=== PATIENT | female | born 1995 ===

== ENCOUNTER 2016-08-24 10:31 | Emergency (ER) | payer OTHER ==
[2016-08-24] MEDS ORDERED: Ondansetron ODT TAB* 4 MG PO ONE (11:58)
--- NOTE | 2016-08-24 12:30 | RAD ---
INDICATION: Chest pain and nausea COMPARISON: None TECHNIQUE: PA and lateral views of the chest were obtained. FINDINGS: The heart and mediastinum are normal in size and contour. The lungs are grossly clear. There is no evidence of large pleural effusion. Visualized bones are normal for the patient's age. There is no radiographic evidence of free air beneath the diaphragm IMPRESSION: No radiographic evidence of acute cardiopulmonary disease.
--- NOTE | 2016-09-01 16:48 | UC ---
Lionel Sousa Rebecca, scribed for Sallie Vega MD on 08/24/16 at 1135 . Abdominal Pain Female HPI - HPI Summary HPI Summary: Pt is a 21 y/o F who presents to [facility] c/o abd pain. Pain began suddenly 1 week ago, worsening 4 days ago and has been intermittent since onset. Pain began immediately upon eating abnormally spicy food. Characterized as moderate epigastric burning that radiates into the chest, present upon trying to eat. Pain has been interrupting daily activities such as dance. Sx aggravated by eating and lying on her ventral side, alleviated by lying on her dorsal side, milk with magnesium and leaning forward. Additionally c/o nausea and decreased appetite. Denies difficulty urinating, diarrhea. However, notes "my stomach feels like it does when I get diarrhea." Was evaluated by [facility] 2 days ago with a dx of GERD and advised to treat with milk and magnesium which only slightly alleviated sx. No known FHx hiatal hernia or GI problems including IBS, Crohn's. Has not consumed EtOH in the last 2 weeks. x [employer] student without a history of smoking or contact with tobacco smoke. 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 Has never been involved in a MVC. - History of Current Complaint Chief Complaint: [facility] [place] Stated Complaint: DIGESTIVE COMPLAINT Time Seen by Provider: 08/24/16 11:29 Hx Obtained From: Patient Hx Last Menstrual Period: 07/28/16 Onset/Duration: Sudden Onset - 1 week, Still Present Timing: Intermittent Episodes Lasting: Severity Initially: Moderate Severity Currently: None Pain Intensity: 0 Pain Scale Used: 0-10 Numeric Location: Epigastric Radiates: Yes Radiates to: Chest Character: Burning Aggravating Factor(s): Food, Other: - Lying on ventral side Alleviating Factor(s): Position - Lying on dorsal side; leaning forward, Other: - Milk with magnesium Associated Signs and Symptoms: Positive: Decreased Appetite, Nausea. Negative: Diarrhea Allergies/Adverse Reactions: Allergies Allergy/AdvReac Type Severity Reaction Status Date / Time [place] Oil Allergy Difficulty Verified 08/24/16 10:46 Breathing/Wheezing dairy Allergy Unknown Uncoded 08/24/16 10:46 Reaction Details Home Medications: Home Medications Eletriptan Hydrobromide [Relpax] 40 mg PO PRN 08/24/16 [History] Magnesium Hydroxide LIQ* [Milk of Magnesia LIQ*] 30 ml PO BID PRN 08/24/16 [ History Confirmed 08/24/16] SUMAtriptan TAB* [Imitrex TAB*] 100 mg PO PRN 08/24/16 [History] PMH/Surg Hx/FS Hx/Imm Hx Previously Healthy: Yes Endocrine History Of: Denies: Diabetes - Surgical History Surgical History: None - Family History Known Family History: Positive: Diabetes, Other - No FHx GI disorders or hiatal hernia - Social History Occupation: Student - [employer] Alcohol Use: Occasionally Substance Use Type: None Smoking Status (MU): Never Smoked Tobacco Review of Systems Constitutional: Negative Skin: Negative Eyes: Negative ENT: Negative Respiratory: Negative Cardiovascular: Negative Gastrointestinal: Abdominal Pain - See HPI, Other - nausea, decreased appetite Genitourinary: Negative Motor: Negative Neurovascular: Negative Musculoskeletal: Negative Neurological: Negative Psychological: Negative All Other Systems Reviewed And Are Negative: Yes - Comments Additional Review of Systems Comments: See HPI Physical Exam Triage Information Reviewed: Yes Appearance: Well-Nourished Vital Signs: Initial Vital Signs Temp 98 F 08/24/16 10:40 Pulse 58 08/24/16 10:40 Resp 14 08/24/16 10:40 BP 115/72 08/24/16 10:40 Pulse Ox 100 08/24/16 10:40 Vital Signs Reviewed: Yes Eye Exam: Normal ENT Exam: Normal Respiratory Exam: Normal Respiratory: Positive: Chest non-tender, Lungs clear, Normal breath sounds, No respiratory distress, No accessory muscle use Cardiovascular Exam: Normal Cardiovascular: Positive: RRR, No Murmur, Pulses Normal, Brisk Capillary Refill Abdominal Exam: Normal Abdomen Description: Positive: Nontender, No Organomegaly, Soft Bowel Sounds: Positive: Present Musculoskeletal Exam: Normal Musculoskeletal: Positive: Strength Intact Neurological Exam: Normal - Nonfocal, grossly intact Psychological Exam: Normal - Conversing easily and appropriately Skin Exam: Normal Skin: Negative: rashes Diagnostics - Radiology CXR Xray Interpretation: No Acute Changes - No radiographic evidence of acute cardiopulmonary disease. Radiology Interpretation Completed By: Radiologist Re-Evaluation - Re-Evaluation First Eval Re-Evaluation Time: 12:25 Comment: Updated pt on status of XR read and confirmed she received Zofran. Second Eval Re-Evaluation Time: 12:48 Change: Improved Comment: Nausea has decreased since administration of Zofran. Discussed XR results with pt. Answered any questions. Abd Pain Female Course/Dx - Course Course Of Treatment: No new problems in CCC. Considered below differential Dx s. Explained to patient which prescriptions she will be receiving. Discussed future directions for treatment, following up with Roxanne. Questions answered to the best of my ability. - Differential Dx/Diagnosis Provider Diagnoses: Abdominal pain Discharge - Discharge Plan Condition: Stable Disposition: HOME Prescriptions: Esomeprazole Magnesium [Nexium 24Hr] 40 mg PO DAILY #30 cap Ondansetron [Zofran 4 MG Odt] 4 mg PO Q8HR PRN #20 tab PRN Reason: Nausea Referrals: [facility] ROXANNE Cade [Medical Doctor] - Additional Instructions: Please follow up with your primary care provider, this week if possible. Seek medical attention for worsening problems in the meantime. The documentation as recorded by the Lionel sterling Rebecca accurately reflects the service I personally performed and the decisions made by me, Sallie Vega MD.
== END 2016-08-24 13:17 | disposition home or self-care (01) ==
LOC: UCEAST 10:31
DX: R10.9 Unspecified abdominal pain (principal); Z91.018 Allergy to other foods; Z91.011 Allergy to milk products
CPT/HCPCS: 71020; 99201; G0463